=== PATIENT | male | born 1995 | race Two or more races ===

== ENCOUNTER 2024-03-06 13:01 | Inpatient (IN) | payer MEDICAID ==
[~2024-03-06] VITALS: Ht 177.8 cm; Wt 108.3 kg
[2024-03-06 14:37] LABS: Urine Bacteria FEW /hpf (None Seen); Urine Blood Negative /uL (Negative); Urine Clarity Clear (Clear); Urine Color Dark-Yellow (Yellow); Urine Hyaline Cast FEW /lpf (0 - 2); Urine Mucus FEW (None Seen); Urine Protein, UAD 3+ (Negative); Urine Specific Gravity 1.028 (1.001-1.035); Urine Urobilinogen 8 mg/dL (Negative); Urine WBC 7 /hpf (0 - 3)
[2024-03-06 14:43] LABS: Basophils # (auto) 0 10 ^3/uL (0-0.2); Basophils % (auto) 0.2 % (0.0-2.0); Eosinophils # (auto) 0 10 ^3/uL (0-0.8); Eosinophils % (auto) 0.3 % (0.0-7.0); Hematocrit 46.1 % (41.0-53.0); Hemoglobin 15.7 g/dL (13.5-17.5); Mean Corpuscular Hemoglobin 29.9 pg (28.0-32.0); Mean Corpuscular Volume 87.9 fL (80.0-100.0); Monocytes # (auto) 0.9 10 ^3/uL (0-1.3); Monocytes % (auto) 7.2 % (0.0-12.0); Neutrophils # (auto) 10.6 10 ^3/uL (1.6-8.6); Neutrophils % (auto) 84.3 % (37.0-80.0); Nucleated Red Blood Cells % 0.1 %; Red Blood Cells 5.24 10^6/uL (4.5-5.90); White Blood Cell 12.6 10^3/uL (4.4-10.8)
[2024-03-06 15:01] LABS: Alanine Aminotransferase 172 U/L (7-40); Albumin 4.3 g/dL (3.2-4.8); Alkaline Phosphatase 95 U/L (46-116); Anion Gap 8 (5-15); Aspartate Aminotransferase 310 U/L (13-40); Bilirubin, Total 2.7 mg/dL (0.2-1.0); Blood Urea Nitrogen 9 mg/dL (9-23); Calcium 9.8 mg/dL (8.7-10.4); Carbon Dioxide 25 mmol/L (20-30); Chloride 105 mmol/L (98-107); Glucose 310 mg/dL (74-106); Potassium 4.3 mmol/L (3.5-5.1); Sodium 138 mmol/L (136-145); Total Protein 7.5 g/dL (5.7-8.2)
[2024-03-06 15:11] LABS: Lipase > 3500 U/L (12-53)
[2024-03-06] MEDS: MORPHINE SULFATE 4 MG/ML SYR/VIAL IV ONE (18:02)
[2024-03-06] MEDS: ONDANSETRON HCL 4 MG/2 ML VIAL IV ONE (18:02)
[2024-03-06] MEDS: SODIUM CHLORIDE 0.9% 1,000 ML IV ONE ×2 (18:03→18:45)
[2024-03-06] MEDS: PIPERACILLIN-TAZOB 3.375GM 100 ML IV ONE (18:03)
[2024-03-06 18:13] VITALS: PULSE 77; RESP 16; O2SAT 95
[2024-03-06] MEDS ORDERED: ACETAMINOPHEN 325 MG TAB PO PRN (18:45)
[2024-03-06] MEDS ORDERED: DEXTROSE (50%) 50ML SYRG IV PRN (18:45)
[2024-03-06] MEDS: SODIUM CHLORIDE 0.9% 1,000 ML IV SCH (18:45)
[2024-03-06] MEDS ORDERED: ONDANSETRON HCL 4 MG/2 ML VIAL IV PRN (18:45)
[2024-03-06 19:10] LABS: Triglycerides 143 mg/dL (< 150)
[2024-03-06 19:11] LABS: LDL Cholesterol 142 mg/dL (< 100)
[2024-03-06 19:12] LABS: HDL Cholesterol 44 mg/dL (40-59)
[2024-03-06 19:13] LABS: Cholesterol 191 mg/dL (< 200)
[2024-03-06 19:15] LABS: Blood Alcohol < 3.0 mg/dL (<10)
[2024-03-06 19:16] LABS: Bilirubin, Direct 1.8 mg/dL (<0.3)
[2024-03-06 20:21] LABS: INR 0.99 (0.9-1.15); Prothrombin Time 10.5 sec (9.3-11.8)
[2024-03-06] MEDS: InsuLIN REG 1unit/0.01ml Soln (100units/ml) SC SCH (22:00)
[2024-03-06 22:19] VITALS: BP 114/76; PULSE 84; PULSE 88; RESP 14; RESP 20; TEMP 98.5; O2SAT 95; O2SAT 98
[2024-03-06] MEDS: ACCU-CHEK COMFORT CURVE STRIP VI SCH (22:23)
[2024-03-06 23:15] VITALS: BP 114/76; PULSE 84; RESP 14; TEMP 98.5; O2SAT 95
[2024-03-07] VITALS (7 sets, daily range): BP systolic 115–127; BP diastolic 70–78; PULSE 73–96; RESP 14–16; TEMP 98–99.6; O2SAT 94–97
[2024-03-07] MEDS ORDERED: METF-370 PO (00:27)
[2024-03-07] MEDS ORDERED: LISI-275 PO (00:27)
[2024-03-07] MEDS ORDERED: INSLANTI SC (00:27)
[2024-03-07] MEDS: PANTOPRAZOLE 40 MG/10 ML VIAL INJ IV ONE (00:35)
[2024-03-07] MEDS: PIPERACILLIN-TAZOB 3.375GM 100 ML IV SCH (00:36)
[2024-03-07] MEDS: KETOROLAC TROMETH 30 MG/ML 1ML VIAL IV ONE (00:36)
[2024-03-07] MEDS ORDERED: KETOROLAC TROMETH 30 MG/ML 1ML VIAL IV PRN (01:00)
[2024-03-07 07:43] LABS: Basophils # (auto) 0 10 ^3/uL (0-0.2); Basophils % (auto) 0.3 % (0.0-2.0); Eosinophils # (auto) 0.1 10 ^3/uL (0-0.8); Eosinophils % (auto) 0.5 % (0.0-7.0); Hematocrit 41.9 % (41.0-53.0); Hemoglobin 14.5 g/dL (13.5-17.5); Lymphocytes # (auto) 1.2 10 ^3/uL (0.4-5.4); Lymphocytes % (auto) 11.3 % (10.0-50.0); Mean Corpuscular Hemoglobin 30.8 pg (28.0-32.0); Mean Corpuscular Hgb Conc. 34.6 g/dL (32.0-36.0); Mean Corpuscular Volume 88.8 fL (80.0-100.0); Monocytes # (auto) 0.8 10 ^3/uL (0-1.3); Monocytes % (auto) 7.8 % (0.0-12.0); Neutrophils # (auto) 8.6 10 ^3/uL (1.6-8.6); Neutrophils % (auto) 80.1 % (37.0-80.0); Red Blood Cells 4.71 10^6/uL (4.5-5.90); Red Cell Distribution Width 12.9 % (11.8-14.3); White Blood Cell 10.7 10^3/uL (4.4-10.8)
[2024-03-07 07:55] LABS: Alanine Aminotransferase 174 U/L (7-40); Albumin 3.6 g/dL (3.2-4.8); Alkaline Phosphatase 88 U/L (46-116); Anion Gap 5 (5-15); Aspartate Aminotransferase 98 U/L (13-40); BUN/Creatinine Ratio 10.8 (10.0-20.0); Bilirubin, Total 1.3 mg/dL (0.2-1.0); Blood Urea Nitrogen 9 mg/dL (9-23); Calcium 8.8 mg/dL (8.7-10.4); Carbon Dioxide 27 mmol/L (20-30); Chloride 106 mmol/L (98-107); Glucose 290 mg/dL (74-106); Lipase 531 U/L (12-53); Potassium 4.1 mmol/L (3.5-5.1); Sodium 138 mmol/L (136-145)
[2024-03-07 07:56] LABS: Total Protein 6.1 g/dL (5.7-8.2)
[2024-03-07] MEDS: PANTOPRAZOLE 40 MG/10 ML VIAL INJ IV SCH (09:43)
[2024-03-07] MEDS: ENOXAPARIN SOD 40 MG/0.4 ML SYRINGE SC SCH (09:44)
[2024-03-07] MEDS: HYDROcodone-ACET 5/325MG TAB PO PRN (09:44)
[2024-03-07] MEDS ORDERED: DEXTROSE (50%) 50ML SYRG IV PRN (12:30)
[2024-03-07] MEDS ORDERED: ACCU-CHEK COMFORT CURVE STRIP VI SCH (12:30)
[2024-03-07] MEDS: HYDROmorphone HCL 2 MG/ML VL/or syr IV PRN (16:00)
[2024-03-07] MEDS: InsuLIN REG 1unit/0.01ml Soln (100units/ml) SC SCH (18:04)
[2024-03-07] MEDS: ACCU-CHEK COMFORT CURVE STRIP VI SCH (18:04)
[2024-03-08 04:44] VITALS: BP 114/78; PULSE 98; RESP 20; TEMP 99.2; O2SAT 100
[2024-03-08 05:44] LABS: Basophils # (auto) 0 10 ^3/uL (0-0.2); Basophils % (auto) 0.2 % (0.0-2.0); Eosinophils # (auto) 0 10 ^3/uL (0-0.8); Eosinophils % (auto) 0.2 % (0.0-7.0); Hematocrit 41.7 % (41.0-53.0); Lymphocytes # (auto) 1.2 10 ^3/uL (0.4-5.4); Lymphocytes % (auto) 8.3 % (10.0-50.0); Mean Corpuscular Hemoglobin 30.2 pg (28.0-32.0); Mean Corpuscular Hgb Conc. 33.6 g/dL (32.0-36.0); Mean Corpuscular Volume 89.8 fL (80.0-100.0); Monocytes # (auto) 1.3 10 ^3/uL (0-1.3); Monocytes % (auto) 8.8 % (0.0-12.0); Neutrophils # (auto) 12.3 10 ^3/uL (1.6-8.6); Neutrophils % (auto) 82.5 % (37.0-80.0); Red Blood Cells 4.64 10^6/uL (4.5-5.90); Red Cell Distribution Width 12.5 % (11.8-14.3); White Blood Cell 14.9 10^3/uL (4.4-10.8)
[2024-03-08 05:56] LABS: Alanine Aminotransferase 113 U/L (7-40); Alkaline Phosphatase 96 U/L (46-116); Anion Gap 6 (5-15); BUN/Creatinine Ratio 7.7 (10.0-20.0); Blood Urea Nitrogen 5 mg/dL (9-23); Calcium 8.8 mg/dL (8.5-10.1); Carbon Dioxide 26 mmol/L (20-30); Chloride 104 mmol/L (98-107); Glucose 210 mg/dL (74-106); LDL Cholesterol 93 mg/dL (< 100); Magnesium 1.8 mg/dL (1.6-2.6); Potassium 3.6 mmol/L (3.5-5.1); Sodium 136 mmol/L (136-145); Triglycerides 136 mg/dL (< 150)
[2024-03-08 05:57] LABS: Albumin 3.9 g/dL (3.2-4.8); Aspartate Aminotransferase 24 U/L (13-40); Bilirubin, Total 1.2 mg/dL (0.2-1.0); Cholesterol 140 mg/dL (< 200); HDL Cholesterol 31 mg/dL (40-59); Total Protein 6.5 g/dL (5.7-8.2)
[2024-03-08 08:40] VITALS: BP 111/72; PULSE 98; RESP 16; TEMP 98.5; O2SAT 95
[2024-03-08 12:44] VITALS: BP 107/66; PULSE 98; RESP 17; TEMP 98.7; O2SAT 92
[2024-03-08 16:46] VITALS: BP 112/70; PULSE 96; RESP 16; TEMP 98; O2SAT 95
[2024-03-08 21:00] VITALS: BP 113/71; PULSE 110; RESP 20; TEMP 99.8; O2SAT 93
[2024-03-09 01:00] VITALS: BP 112/74; PULSE 90; RESP 20; TEMP 98.4; O2SAT 93
[2024-03-09 05:00] VITALS: BP 116/71; PULSE 100; RESP 20; TEMP 98.8; O2SAT 91
[2024-03-09 09:04] VITALS: BP 119/77; PULSE 103; RESP 17; TEMP 98.4; O2SAT 95
[2024-03-09 13:09] VITALS: BP 132/84; PULSE 95; RESP 18; TEMP 98; O2SAT 98
[2024-03-09 17:03] VITALS: BP 118/76; PULSE 105; RESP 16; TEMP 98.2; O2SAT 96
[2024-03-09 23:25] VITALS: BP 122/83; PULSE 103; RESP 19; TEMP 99.3; O2SAT 96
[2024-03-10] VITALS (8 sets, daily range): BP systolic 104–129; BP diastolic 63–75; PULSE 65–98; RESP 16–20; TEMP 98.1–98.8; O2SAT 63–97
[2024-03-10] MEDS ORDERED: HYDROmorphone HCL 2 MG/ML VL/or syr IV PRN (00:30)
[2024-03-10] MEDS: MELATONIN 5 MG TAB PO ONE (00:39)
[2024-03-10] MEDS: HYDROcodone-ACET 5/325MG TAB PO PRN (00:39)
[2024-03-10] MEDS: HYDROmorphone HCL 2 MG/ML VL/or syr IV PRN ×2 (03:37→15:34)
[2024-03-10 06:06] LABS: Basophils # (auto) 0 10 ^3/uL (0-0.2); Basophils % (auto) 0.3 % (0.0-2.0); Eosinophils # (auto) 0.1 10 ^3/uL (0-0.8); Hematocrit 36.6 % (41.0-53.0); Hemoglobin 12.5 g/dL (13.5-17.5); Lymphocytes # (auto) 1.4 10 ^3/uL (0.4-5.4); Lymphocytes % (auto) 10.6 % (10.0-50.0); Mean Corpuscular Hemoglobin 30.2 pg (28.0-32.0); Mean Corpuscular Hgb Conc. 34.1 g/dL (32.0-36.0); Mean Corpuscular Volume 88.7 fL (80.0-100.0); Monocytes # (auto) 1.2 10 ^3/uL (0-1.3); Monocytes % (auto) 8.8 % (0.0-12.0); Neutrophils # (auto) 10.5 10 ^3/uL (1.6-8.6); Neutrophils % (auto) 79.3 % (37.0-80.0); Red Blood Cells 4.13 10^6/uL (4.5-5.90); Red Cell Distribution Width 12.8 % (11.8-14.3); White Blood Cell 13.2 10^3/uL (4.4-10.8)
[2024-03-10 06:33] LABS: Alanine Aminotransferase 46 U/L (7-40); Albumin 3.7 g/dL (3.2-4.8); Alkaline Phosphatase 102 U/L (46-116); Anion Gap 5 (5-15); Aspartate Aminotransferase 10 U/L (13-40); BUN/Creatinine Ratio 9.6 (10.0-20.0); Blood Urea Nitrogen 5 mg/dL (9-23); Calcium 9.1 mg/dL (8.7-10.4); Carbon Dioxide 27 mmol/L (20-30); Chloride 104 mmol/L (98-107); Glucose 171 mg/dL (74-106); Lipase 35 U/L (12-53); Potassium 3.8 mmol/L (3.5-5.1); Sodium 136 mmol/L (136-145)
[2024-03-10 06:34] LABS: Total Protein 6.7 g/dL (5.7-8.2)
[2024-03-10] MEDS: MELATONIN 5 MG TAB ONE (08:12)
[2024-03-10 11:34] LABS: Urine Bacteria None Seen /hpf (None Seen)
[2024-03-10 12:01] LABS: Urine Blood Negative /uL (Negative); Urine Clarity Clear (Clear); Urine Color Yellow (Yellow); Urine Mucus FEW (None Seen); Urine Protein, UAD 2+ (Negative); Urine Specific Gravity 1.045 (1.001-1.035); Urine Urobilinogen 8 mg/dL (Negative); Urine WBC 6 /hpf (0 - 3); Urine pH 6.5 (5.0-9.0)
[2024-03-10] MEDS ORDERED: DEXTROSE (50%) 50ML SYRG IV PRN (14:15)
[2024-03-10] MEDS: IOHEXOL 350 MG/ML 100ML IJ ONE (14:30)
[2024-03-10] MEDS: diphenhdrAMINE HCL 50 MG/1 ML VL IV ONE (14:46)
[2024-03-10] MEDS: HYDROCORTISONE SOD SUCC 100 MG/2ML INJ VIAL IV ONE (14:46)
[2024-03-10] MEDS: ACCU-CHEK COMFORT CURVE STRIP VI SCH (17:30)
[2024-03-10] MEDS: InsuLIN REG 1unit/0.01ml Soln (100units/ml) SC SCH (18:30)
[2024-03-11] VITALS (8 sets, daily range): BP systolic 111–130; BP diastolic 69–83; PULSE 68–94; RESP 15–20; TEMP 97.6–98.9; O2SAT 95–100
[2024-03-11] MEDS: MORPHINE SULFATE INJ 2 MG/ml SYRG IV ONE (01:30)
[2024-03-11 07:06] LABS: Basophils # (auto) 0.1 10 ^3/uL (0-0.2); Basophils % (auto) 0.4 % (0.0-2.0); Eosinophils # (auto) 0.1 10 ^3/uL (0-0.8); Eosinophils % (auto) 0.9 % (0.0-7.0); Hematocrit 36.4 % (41.0-53.0); Hemoglobin 12.7 g/dL (13.5-17.5); Lymphocytes # (auto) 1.5 10 ^3/uL (0.4-5.4); Lymphocytes % (auto) 11.6 % (10.0-50.0); Mean Corpuscular Hemoglobin 30.9 pg (28.0-32.0); Mean Corpuscular Hgb Conc. 34.8 g/dL (32.0-36.0); Mean Corpuscular Volume 88.9 fL (80.0-100.0); Monocytes # (auto) 1.2 10 ^3/uL (0-1.3); Monocytes % (auto) 8.7 % (0.0-12.0); Neutrophils # (auto) 10.4 10 ^3/uL (1.6-8.6); Neutrophils % (auto) 78.4 % (37.0-80.0); Red Cell Distribution Width 12.7 % (11.8-14.3); White Blood Cell 13.3 10^3/uL (4.4-10.8)
[2024-03-11 07:22] LABS: Alanine Aminotransferase 37 U/L (7-40); Alkaline Phosphatase 120 U/L (46-116); Anion Gap 8 (5-15); BUN/Creatinine Ratio 11.5 (10.0-20.0); Blood Urea Nitrogen 6 mg/dL (9-23); Calcium 9.3 mg/dL (8.5-10.1); Carbon Dioxide 26 mmol/L (20-30); Chloride 103 mmol/L (98-107); Glucose 153 mg/dL (74-106); Magnesium 1.8 mg/dL (1.6-2.6); Potassium 3.7 mmol/L (3.5-5.1); Sodium 137 mmol/L (136-145)
[2024-03-11 07:23] LABS: Albumin 3.8 g/dL (3.2-4.8); Aspartate Aminotransferase 14 U/L (13-40)
[2024-03-11 07:24] LABS: Bilirubin, Total 0.7 mg/dL (0.2-1.0); Total Protein 6.6 g/dL (5.7-8.2)
[2024-03-11 07:28] LABS: INR 1.12 (0.9-1.15); Partial Thromboplastin Time 29.8 SEC (24.5-34.5); Prothrombin Time 11.8 sec (9.3-11.8)
[2024-03-11] MEDS: ceFAZolin 2 GM/D5W50ml 50 ML IV ONE (11:48)
[2024-03-11] MEDS ORDERED: MIDAZOLAM HCL 2MG/2ML 2ml VIAL (1mg/ml) ONE (13:16)
[2024-03-11] MEDS ORDERED: fentaNYL CITRATE 5 ML ONE (13:16)
[2024-03-11] MEDS ORDERED: PROPOFOL 10 MG/ML 20 ML IV ONE (13:17)
[2024-03-11] MEDS ORDERED: ONDANSETRON HCL 4 MG/2 ML VIAL ONE (13:17)
[2024-03-11] MEDS ORDERED: LIDOCAINE 2% (LOCAL ANESTH.) PF 5ml SDV ONE (13:17)
[2024-03-11] MEDS ORDERED: HYDROmorphone HCL 2 MG/ML VL/or syr ONE (13:56)
[2024-03-11] MEDS ORDERED: HYDROmorphone HCL 2 MG/ML VL/or syr IV PRN ×2 (14:15)
[2024-03-11] MEDS ORDERED: ONDANSETRON HCL 4 MG/2 ML VIAL IV ONE (14:15)
[2024-03-11] MEDS: BUPIVACAINE 0.25% INJ 50ML VIAL ONE (14:20)
[2024-03-11] MEDS ORDERED: NEOSTIGMINE 1 MG/ML INJ (10mg/10ML VIAL) ONE (14:25)
[2024-03-11] MEDS ORDERED: GLYCOPYRROLATE 0.2 MG/ML 1ML VIAL ONE (14:25)
[2024-03-12] VITALS (8 sets, daily range): BP systolic 107–128; BP diastolic 70–82; PULSE 56–99; RESP 17–20; TEMP 98–99.1; O2SAT 96–100
[2024-03-12 06:55] LABS: Alanine Aminotransferase 47 U/L (7-40); Alkaline Phosphatase 145 U/L (46-116); Anion Gap 7 (5-15); Aspartate Aminotransferase 39 U/L (13-40); Calcium 8.8 mg/dL (8.5-10.1); Carbon Dioxide 26 mmol/L (20-30); Chloride 103 mmol/L (98-107); Glucose 150 mg/dL (74-106); Potassium 3.7 mmol/L (3.5-5.1); Sodium 136 mmol/L (136-145)
[2024-03-12 06:56] LABS: Albumin 3.7 g/dL (3.2-4.8); Bilirubin, Total 0.7 mg/dL (0.2-1.0); Total Protein 6.3 g/dL (5.7-8.2)
[2024-03-12 06:58] LABS: BUN/Creatinine Ratio 10.2 (10.0-20.0); Blood Urea Nitrogen < 5 mg/dL (9-23)
[2024-03-12 07:04] LABS: Basophils # (auto) 0 10 ^3/uL (0-0.2); Basophils % (auto) 0.2 % (0.0-2.0); Eosinophils # (auto) 0.1 10 ^3/uL (0-0.8); Eosinophils % (auto) 0.9 % (0.0-7.0); Hematocrit 33.7 % (41.0-53.0); Hemoglobin 11.7 g/dL (13.5-17.5); Lymphocytes % (auto) 9.3 % (10.0-50.0); Mean Corpuscular Hgb Conc. 34.8 g/dL (32.0-36.0); Mean Corpuscular Volume 89.2 fL (80.0-100.0); Monocytes % (auto) 8.9 % (0.0-12.0); Neutrophils # (auto) 9.1 10 ^3/uL (1.6-8.6); Neutrophils % (auto) 80.7 % (37.0-80.0); Red Blood Cells 3.79 10^6/uL (4.5-5.90); Red Cell Distribution Width 12.7 % (11.8-14.3); White Blood Cell 11.2 10^3/uL (4.4-10.8)
[2024-03-12 07:06] LABS: Magnesium 1.7 mg/dL (1.6-2.6)
[2024-03-13 01:11] VITALS: BP 125/84; PULSE 79; RESP 18; TEMP 98.4; O2SAT 97
[2024-03-13 05:00] VITALS: BP 127/77; PULSE 71; RESP 18; TEMP 98.6; O2SAT 96
[2024-03-13 08:00] VITALS: PULSE 64; RESP 14; O2SAT 94
[2024-03-13 09:00] VITALS: BP 128/87; PULSE 74; RESP 18; TEMP 97.5; O2SAT 98
[2024-03-13] MEDS ORDERED: IBUP1TAB5 PO (09:04)
[2024-03-13] MEDS ORDERED: ACE3T PO (09:04)
[2024-03-13 13:00] VITALS: BP 142/81; PULSE 64; RESP 14; TEMP 97.7; O2SAT 94
[2024-03-13 14:33] VITALS: BP 128/84; PULSE 74; RESP 18
== END 2024-03-13 16:20 | disposition home or self-care (01) | DRG 263 ==
LOC: ER 13:01 → OVERFLOW 18:39 → WEST WING 18:39
PROVIDERS: ADMIT Nurse Practitioner Family; ATTEND Internal Medicine Geriatric Medicine
PROC: 0FT44ZZ Resection of Gallbladder, Percutaneous Endoscopic Approach (ICD-10-PCS; principal; 2024-03-11 13:11)
DX: K85.10 Biliary acute pancreatitis without necrosis or infection (principal); R65.11 Systemic inflammatory response syndrome (SIRS) of non-infectious origin with acute organ dysfunction; K80.00 Calculus of gallbladder with acute cholecystitis without obstruction; E11.65 Type 2 diabetes mellitus with hyperglycemia; E66.01 Morbid (severe) obesity due to excess calories; R74.01 Elevation of levels of liver transaminase levels; I10 Essential (primary) hypertension; N30.00 Acute cystitis without hematuria; J98.11 Atelectasis; Z88.0 Allergy status to penicillin; Z79.4 Long term (current) use of insulin; Z79.899 Other long term (current) drug therapy; Z91.199 Patient's noncompliance with other medical treatment and regimen due to unspecified reason; Z68.34 Body mass index [BMI] 34.0-34.9, adult
CPT/HCPCS: 36415; 71045; 71275; 74176; 74181; 76705; 76775; 80053; 80061; 80320; 81001; 82248; 82962; 83036; 83605; 83690; 83735; 84443; 85025; 85379; 85610; 85730; 86850; 86900; 86901; 87040; C9113; G0378; J1815; J1885; J2001; J2250; J2405; J2470; J2543; J2704; J3490